=== PATIENT | female | born 1935 | race Caucasian/White ===

== ENCOUNTER 2022-02-26 15:36 | Outpatient (CLI) | payer MEDICARE | END 2022-02-26 15:37 | disposition home or self-care (01) | LOC: CSHRAD 15:36 | PROVIDERS: ATTEND Family Medicine | DX: M79.622 Pain in left upper arm (principal); W19.XXXA Unspecified fall, initial encounter ==

== ENCOUNTER 2023-01-09 13:01 | Outpatient (CLI) | payer MEDICARE ==
[2023-01-09 15:08] LABS: Hematocrit 39.5 % (34.9-44.5); Hemoglobin 12.7 g/dL (12.0-15.5); Mean Corpuscular HGB CONC 32.2 g/dL (32.0-36.0); Mean Corpuscular Hemoglobin 29.5 pg (27.0-33.0); Mean Corpuscular Volume 91.6 fl (81.6-98.3); Mean Platelet Volume 12.1 fl (7.4-10.4); Platelet Count 159 10x3/uL (150-450); RBC Distribution Width 12.7 % (11.5-14.5); Red Blood Cell (RBC) Count 4.31 10x6/uL (3.90-5.03); White Blood Cell (WBC) Count 5.9 10x3/uL (3.5-10.5)
[2023-01-09 15:20] LABS: Anion Gap 15 mmol/L (10-20); BUN (Urea Nitrogen) 24 mg/dL (9.8-20.1); Calc. Creatinine Clearance 0 mL/min (70-130); Calcium 10.6 mg/dL (7.8-10.44); Carbon Dioxide 24 mmol/L (23-31); Chloride 105 mmol/L (98-107); Estimated GFR 63; Glucose 131 mg/dL (83-110); Potassium 5.3 mmol/L (3.5-5.1); Sodium 139 mmol/L (136-145)
== END 2023-01-09 13:02 | disposition home or self-care (01) ==
LOC: CSHLAB 13:01
PROVIDERS: ATTEND Otolaryngology Plastic Surgery within the Head & Neck
DX: Z01.818 Encounter for other preprocedural examination (principal); C02.9 Malignant neoplasm of tongue, unspecified
CPT/HCPCS: 80048; 85027; 93005; 93010

== ENCOUNTER 2023-03-20 14:25 | Outpatient (CLI) | payer MEDICARE ==
[2023-03-20 16:07] LABS: Anion Gap 12 mmol/L (10-20); BUN (Urea Nitrogen) 23 mg/dL (9.8-20.1); Calc. Creatinine Clearance 0 mL/min (70-130); Carbon Dioxide 28 mmol/L (23-31); Chloride 106 mmol/L (98-107); Estimated GFR 80; Glucose 93 mg/dL (83-110); Potassium 4.8 mmol/L (3.5-5.1); Sodium 141 mmol/L (136-145)
[2023-03-20 16:17] LABS: Hematocrit 34.6 % (34.9-44.5); Hemoglobin 10.8 g/dL (12.0-15.5); Mean Corpuscular HGB CONC 31.2 g/dL (32.0-36.0); Mean Corpuscular Hemoglobin 29.9 pg (27.0-33.0); Mean Corpuscular Volume 95.8 fl (81.6-98.3); Mean Platelet Volume 11.6 fl (7.4-10.4); Platelet Count 181 10x3/uL (150-450); RBC Distribution Width 13.5 % (11.5-14.5); Red Blood Cell (RBC) Count 3.61 10x6/uL (3.90-5.03); White Blood Cell (WBC) Count 4.6 10x3/uL (3.5-10.5)
== END 2023-03-20 14:26 | disposition home or self-care (01) ==
LOC: CSHLAB 14:25
PROVIDERS: ATTEND Otolaryngology Plastic Surgery within the Head & Neck
DX: Z01.818 Encounter for other preprocedural examination (principal); K14.8 Other diseases of tongue
CPT/HCPCS: 80048; 85027; 93005; 93010

== ENCOUNTER 2023-03-25 06:09 | Day surgery (SDC) | payer MEDICARE ==
[2023-03-20 15:19] VITALS: BMI 21.0
[2023-03-25] MEDS ORDERED: Lidocaine 1% w/Epinephrine 1:100K 20 ML VIAL ONE (08:05)
[2023-03-25] MEDS ORDERED: Lidocaine 1% PF 5 ML VIAL ONE (08:42)
[2023-03-25] MEDS ORDERED: fentaNYL 50 mcg/mL 1 mL Vial ONE ×3 (08:42→09:59)
[2023-03-25] MEDS ORDERED: Ondansetron PF 4 MG/2 ML Vial ONE (08:42)
[2023-03-25] MEDS ORDERED: PROPOFOL 20 ML ONE (08:42)
[2023-03-25] MEDS ORDERED: Dexamethasone 20 MG/5 ML VIAL ONE (08:42)
[2023-03-25] MEDS ORDERED: Rocuronium Bromide 10 MG/ML (10ML VIAL) ONE (08:42)
[2023-03-25] MEDS ORDERED: ePHEDrine Sulfate 50 MG/10 ML VIAL ONE (09:00)
== END 2023-03-25 12:00 | disposition home or self-care (01) ==
LOC: CSHSDC 06:09
PROVIDERS: ATTEND Otolaryngology Plastic Surgery within the Head & Neck
PROC: 0JB10ZX Excision of Face Subcutaneous Tissue and Fascia, Open Approach, Diagnostic (ICD-10-PCS; principal; 2023-03-25)
DX: C02.9 Malignant neoplasm of tongue, unspecified (principal); K14.8 Other diseases of tongue; K13.29 Other disturbances of oral epithelium, including tongue; I10 Essential (primary) hypertension; E03.9 Hypothyroidism, unspecified; E78.5 Hyperlipidemia, unspecified; Z79.82 Long term (current) use of aspirin; Z79.899 Other long term (current) drug therapy
CPT/HCPCS: 41100; J3010; 88305; 88331; 88332; J1100; J2405; J2704